=== PATIENT | female | born 1960 ===

== ENCOUNTER 2023-12-13 15:32 | Outpatient (CLI) | payer OTHER, SELFPAY ==
--- NOTE | ~2023-12-13 | XR_ITS ---
EXAMINATION: XR thoracic spine 2V DATE: 12/13/2023 15:51 INDICATION: Back pain. TECHNIQUE: 2 views of the thoracic spine were obtained. COMPARISON: None. FINDINGS: Alignment is normal. There is mild chronic anterior wedging of T12 vertebral body. There is mildly decreased disc height at multiple levels in upper thoracic spine. There are endplate osteophy lucas at multiple levels. Surgical clips in the right upper quadrant are likely from cholecystectomy. IMPRESSION: 1. Mild thoracic spondylosis. Reviewed, dictated and finalized at location B.
--- NOTE | ~2023-12-13 | XR_ITS ---
EXAMINATION: XR cervical spine 4-5V DATE: 12/13/2023 15:51 INDICATION: Neck pain. Upper back pain. TECHNIQUE: 5 views of cervical spine were obtained. COMPARISON: None. FINDINGS: Alignment is normal. Vertebral body heights are normal. There is mildly decreased disc heig ht at C3-C4 and moderately decreased disc height at C6-C7. There is multilevel mild facet joint osteo arthritis. On the right, there is mild neural foraminal stenosis at C6-C7. On the left, there is mild neural foraminal stenosis at C4-C5. There is mild central canal stenosis at C3-C4 and C6-C7. No prev ertebral soft tissue swelling. IMPRESSION: 1. Moderate cervical spondylosis. Reviewed, dictated and finalized at location B.
== END 2023-12-13 15:33 | disposition home or self-care (01) ==
LOC: MICIMG 15:37
PROVIDERS: PCP Chiropractor; Visit Provider Chiropractor
DX: M47.894 Other spondylosis, thoracic region (principal); M47.892 Other spondylosis, cervical region
CPT/HCPCS: 72050; 72070